=== PATIENT | male | born 1980 | race African-American/Black ===

== ENCOUNTER 2016-08-07 11:37 | Inpatient (IN) | payer SELFPAY ==
[2016-08-07] MEDS ORDERED: Ondansetron 4 MG/2 ML SDV IVPUSH ONE (12:36)
[2016-08-07] MEDS ORDERED: LORazepam 2 MG/ML MDV IVPUSH ONE ×2 (12:36→15:18)
--- NOTE | 2016-08-07 12:45 | EDM.PDOC ---
ED HPI NEURO - General Chief Complaint: Syncope Stated Complaint: VOMITING Time Seen by Provider: 08/07/16 12:36 Source of Information: Reports: Patient History Limitations: Reports: No limitations - History of Present Illness INITIAL COMMENTS - FREE TEXT/NARRATIVE: Patient is a 35-year-old who presents to the ED complaining of dizziness, room spinning, and nausea/vomiting. States yesterday he awoke with dizziness at approximately 5 AM. He was able to go to work but noted the dizziness continued to worsen thus he returned home and ate breakfast. Dizziness resolved on its own and had no further issues. This morning at approximately 2: 00 amhe awoke with severe dizziness worsened with eyes opening, moving his head left to right or up or down. He's had a few episodes of nausea and emesis. Symptoms improved with closing his eyes and holding his head straight. He currently does not have any nausea with admission to the ED. He notes with onset of vertigo symptoms he has some balance issues he feels like he will fall over. States he's never experienced similar episode in the past. Nor has he had recent upper respiratory infection. He has a mild headache to the frontal and back region consistent with previous headaches in the past. Denies any vision changes, slurred speech, difficulty swallowing, weakness, or any other focal neurological deficits. Denies any fever/chills, upper respiratory infections, ear pain, vision loss, chest pain, shortness of breath, no pain, or any additional complaints. Again he's never had symptoms as such. He has no prior past medical history and takes no prescription medications. He has no surgical history and has no primary care provider locally. He does not smoke consume alcohol or take drugs. Timing/Duration: Reports: Intermittent Location (Neuro Complaint): Reports: generalized Quality (Neuro Complaint): Reports: other (Room spinning) Improves with: Reports: Other (Closing eyes with no movement of the head.) Worsens with: Reports: Other (Moving head and open eyes) Context, General: Denies: Activity, Exercise, Lifting, Sick contact, Trauma Associated Symptoms: Reports: headaches (Mild), loss of appetite, nausea/ vomiting. 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 [No Known Home Meds] 08/07/16 [History] Social & Family History - Family History Family Medical History: Noncontributory - Tobacco Use Smoking Status *Q: Never Smoker - Caffeine Use Caffeine Use: Reports: Coffee - Recreational Drug Use Recreational Drug Use: No ED ROS GENERAL - Review of Systems Review Of Systems: See Below Constitutional: Denies: fever, chills, malaise, weakness, fatigue, decreased appetite HEENT: Reports: Vertigo. Denies: Ear discharge, Ear pain, Eye pain, Hearing loss, Rhinitis, Throat pain, Throat swelling, Vision change Respiratory: Denies: Shortness of Breath, Cough, Sputum Cardiovascular: Denies: Chest pain, Blood pressure problem, Dyspnea on exertion , Lightheadedness, Palpitations GI/Abdominal: Reports: Nausea, Vomiting. Denies: Abdominal pain, Constipation, Diarrhea : Denies: dysuria Musculoskeletal: Denies: neck pain, back pain Neurological: Reports: Headache (mild), Gait Disturbance (2nd to vertigo). Denies: Dizziness, Numbness, Paresthesia, Syncope, Tingling, Weakness ED EXAM, NEURO - Physical Exam Exam: See Below Exam Limited By: No limitations General Appearance: alert, WD/WN, no apparent distress Eye Exam: bilateral eye: EOMI, nystagmus (horizontal), PERRL Ears: normal external exam, normal canal, hearing grossly normal, normal TMs Nose: normal inspection Throat/Mouth: Normal inspection, Normal oropharynx, Normal voice, No airway compromise Head Exam: atraumatic, normocephalic Neck: normal inspection, supple, non-tender, full range of motion. No: lymphadenopathy (L), lymphadenopathy (R) Respiratory/Chest: no respiratory distress, lungs clear, normal breath sounds, no accessory muscle use, chest non-tender Cardiovascular: normal peripheral pulses, regular rate, rhythm, no murmur GI/Abdominal: normal bowel sounds, soft, non tender, no organomegaly, no distention Neurological: alert, normal mood/affect, normal dorsiflexion, CN II-XII intact, normal plantar flexion, normal reflexes, no motor/sensory deficits, oriented x 3 , other ([place] intact. No weakness noted to the upper/lower extremities. No facial droop. ) Course - Vital Signs Last Recorded V/S: Last Vital Signs Temp 96.5 F 08/07/16 11:50 Pulse 78 08/07/16 20:00 Resp 16 08/07/16 20:00 BP 140/78 08/07/16 20:00 Pulse Ox 97 08/07/16 20:00 Orthostatic Blood Pressure [ 142/89 Sitting] Orthostatic Blood Pressure [ 114/66 Supine] - Orders/Labs/Meds Orders: Active Orders 24 hr Category Date Time Status EKG Documentation Completion [RC] STAT Care 08/07/16 12:45 Active Medication Orders Acetaminophen (Tylenol) 650 mg PO Q4H PRN PRN Reason: Pain (Mild 1-3)/fever Acetaminophen/Hydrocodone Bitart ([place] 325-5 Mg) 1 tab PO Q4H PRN PRN Reason: Pain (moderate 4-6) Albuterol/Ipratropium (Duoneb 3.0-0.5 Mg/3 Ml) 3 ml NEB Q4H PRN PRN Reason: Shortness Of Breath/wheezing Bisacodyl (Dulcolax) 5 mg PO DAILY PRN PRN Reason: Constipation Enoxaparin Sodium (Lovenox) 30 mg SUBCUT DAILY PHIL Hydromorphone HCl (Dilaudid) 0.25 mg IVPUSH Q2H PRN PRN Reason: Pain (severe 7-10) Promethazine HCl 12.5 mg/ (Sodium Chloride) 50.5 mls @ 100 mls/hr IV Q6H PRN PRN Reason: Nausea/Vomiting Lorazepam (Ativan) 1 mg IV Q6H PRN PRN Reason: Anxiety Meclizine HCl (Antivert) 25 mg PO Q6H PRN PRN Reason: Dizziness Ondansetron HCl (Zofran) 4 mg IV Q6H PRN PRN Reason: Nausea/Vomiting Polyethylene Glycol (Miralax) 17 gm PO DAILY PRN PRN Reason: Constipation Senna/Docusate Sodium (Senna Plus) 1 tab PO BID PRN PRN Reason: Constipation Temazepam (Restoril) 30 mg PO BEDTIME PRN PRN Reason: Sleep Labs: Laboratory Tests 08/07/16 08/07/16 08/07/16 Range/Units 13:01 18:24 18:24 WBC 8.74 (4.23-9.07) K/mm3 RBC 5.29 (4.63-6.08) M/mm3 Hgb 16.1 (13.7-17.5) gm/L Hct 45.5 (40.1-51.0) % MCV 86.0 (79.0-92.2) fl MCH 30.4 (25.7-32.2) pg MCHC 35.4 (32.2-35.5) g/dl RDW Std Deviation 41.5 (35.1-43.9) fL Plt Count 189 (163-337) K/mm3 MPV 10.6 (9.4-12.3) fl Neut % (Auto) 79.0 H (34.0-67.9) % Lymph % (Auto) 15.2 L (21.8-53.1) % [place] % (Auto) 5.3 (5.3-12.2) % Eos % (Auto) 0.2 L (0.8-7.0) Baso % (Auto) 0.1 (0.1-1.2) % Neut # 6.90 H (1.78-5.38) K/mm3 Lymph # 1.33 (1.32-3.57) K/mm3 [place] # 0.46 (0.30-0.82) K/mm3 Eos # 0.02 L (0.04-0.54) K/mm3 Baso # 0.01 (0.01-0.08) K/mm3 Sodium 141 (136-145) mEq/L Potassium 4.0 (3.5-5.1) mEq/L Chloride 103 (98-107) mEq/L Carbon Dioxide 31 (21-32) mEq/L Anion Gap 11.0 (5-15) BUN 10 (7-18) mg/dL Creatinine 1.0 (0.7-1.3) mg/dL Est Cr Clr Drug Dosing 109.81 mL/min Estimated GFR (MDRD) > 60 (>60) mL/min BUN/Creatinine Ratio 10.0 L (14-18) Glucose 110 H (74-106) mg/dL POC Glucose 85 (70-105) mg/dL Calcium 8.8 (8.5-10.1) mg/dL Total Bilirubin 0.8 (0.2-1.0) mg/dL AST 15 (15-37) U/L ALT 39 (16-63) U/L Alkaline Phosphatase 57 (46-116) U/L Total Protein 7.5 (6.4-8.2) g/dl Albumin 4.2 (3.4-5.0) g/dl Globulin 3.3 gm/dL Albumin/Globulin Ratio 1.3 (1-2) Meds: Medications Generic Name Dose Route Start Last Admin Trade Name Freq PRN Reason Stop Dose Admin Acetaminophen 650 mg 08/07/16 20:05 Tylenol PO Q4H PRN Pain (Mild 1-3)/fever Acetaminophen/Hydrocodone Bitart 1 tab 08/07/16 20:05 [place] 325-5 Mg PO Q4H PRN Pain (moderate 4-6) Albuterol/Ipratropium 3 ml 08/07/16 20:05 Duoneb 3.0-0.5 Mg/3 Ml NEB Q4H PRN Shortness Of Breath/wheezing Bisacodyl 5 mg 08/07/16 20:05 Dulcolax PO DAILY PRN Constipation Enoxaparin Sodium 30 mg 08/08/16 09:00 Lovenox SUBCUT DAILY PHIL Hydromorphone HCl 0.25 mg 08/07/16 20:05 Dilaudid IVPUSH Q2H PRN Pain (severe 7-10) Promethazine HCl 12.5 mg/ 50.5 mls @ 100 mls/hr 08/07/16 20:05 Sodium Chloride IV Q6H PRN Nausea/Vomiting Lorazepam 1 mg 08/07/16 20:05 Ativan IV Q6H PRN Anxiety Meclizine HCl 25 mg 08/07/16 20:13 Antivert PO Q6H PRN Dizziness Ondansetron HCl 4 mg 08/07/16 20:05 Zofran IV Q6H PRN Nausea/Vomiting Polyethylene Glycol 17 gm 08/07/16 20:05 Miralax PO DAILY PRN Constipation Senna/Docusate Sodium 1 tab 08/07/16 20:05 Senna Plus PO BID PRN Constipation Temazepam 30 mg 08/07/16 20:05 Restoril PO BEDTIME PRN Sleep Discontinued Medications Generic Name Dose Route Start Last Admin Trade Name Freq PRN Reason Stop Dose Admin Diphenhydramine HCl 50 mg 08/07/16 20:14 Benadryl IVPUSH 08/07/16 20:15 ONETIME ONE Sodium Chloride 500 mls @ 500 mls/hr 08/07/16 18:09 08/07/16 18:19 Normal Saline IV 08/07/16 19:08 500 mls/hr .BOLUS ONE Administration Lorazepam 1 mg 08/07/16 12:36 08/07/16 13:02 Ativan IVPUSH 08/07/16 12:37 1 mg ONETIME ONE Administration Lorazepam 1 mg 08/07/16 15:18 08/07/16 15:27 Ativan IVPUSH 08/07/16 15:19 1 mg ONETIME ONE Administration Meclizine HCl 12.5 mg 08/07/16 13:42 08/07/16 14:10 Antivert PO 08/07/16 13:43 12.5 mg ONETIME ONE Administration Metoclopramide HCl 5 mg 08/07/16 15:18 08/07/16 15:30 Reglan IVPUSH 08/07/16 15:19 5 mg ONETIME ONE Administration Metoclopramide HCl 5 mg 08/07/16 18:09 08/07/16 18:15 Reglan IVPUSH 08/07/16 18:10 5 mg ONETIME ONE Administration Ondansetron HCl 4 mg 08/07/16 12:36 08/07/16 13:02 Zofran IVPUSH 08/07/16 12:37 4 mg ONETIME ONE Administration - Re-Assessments/Exams Free Text/Narrative Re-Assessment/Exam: EKG obtained. Sinus rhythm rate of 65, normal p axis, pr interval 1178, and QTc 441. no acute STchanges. Suspect current symptoms are related to BPV. Physical examination did not elicit any concerning neurological findings requiring further testing. Thus I have ordered ativan 1mg IVP and also zofran 4 mg IVP. 08/07/16 12:38 08/07/16 13:31 Bedside glucose was 85. 08/07/16 13:43 Reassessment, patients dizziness has improved. Currently mild increased with opening eyes and turning of the head. I have ordered meclizine 12.5 mg PO in preparation for discharge. Will allow patient to rest alittle longer prior to getting up to test if ataxic. 08/07/16 15:19 Reassessment, patient sat up with with worsening vertigo noted. Symptoms discontinue with lying flat and eyes closed. Ordered ativan 1mg IVP and reglan 5 mg IVP. PT at [facility] is full and unable to get patient in for treatment. 08/07/16 16:04 Reassessment, patient is resting comfortably. With sitting patients vertigo persist with opening of eyes. Horizontal nystagmus has worsened. Attempted to perform a modified eppley maneuver with no change. Will obtain CT of the Head. 08/07/16 18:09 Reassessment, patient sitting along the bedside complaining dizziness. Denies any nausea. Dr. Barfield examined the patient and agrees current symptoms associated with BPV most likely associated to the left inner ear. Patient is to unsafe to go home and will see about admitting to observation status. I have ordered NS 500ml bolus with running of 125mls thereafter.CBC and C14 will be obtained. I have ordered additional 5mg Reglan. 08/07/16 18:28 Dr. Jeter has accepted the patient. Patient meets observation status. Orders for admission placed. Departure - Departure Time of Disposition: 18:31 Disposition: Refer to Observation Condition: poor Clinical Impression: Acute onset of severe vertigo, Ataxic gait - My Orders Last 24 Hours: My Active Orders 08/07/16 12:45 EKG Documentation Completion [RC] STAT - Assessment/Plan Last 24 Hours: My Active Orders 08/07/16 12:45 EKG Documentation Completion [RC] STAT
[2016-08-07] MEDS ORDERED: Meclizine 12.5 MG Tab PO ONE (13:42)
[2016-08-07] MEDS ORDERED: Metoclopramide 10 MG/2 ML SDV IVPUSH ONE ×2 (15:18→18:09)
--- NOTE | 2016-08-07 16:48 | CT ---
Head CT Technique: Multiple axial sections through the brain were obtained. Intravenous contrast was not utilized. Comparison: No previous intracranial imaging. Findings: Ventricles along with basal cisterns and sulci over the convexities are within normal limits for the patient's age. No abnormal parenchymal densities are seen. No evidence of intracranial hemorrhage. No midline shift or mass effect is seen. Bone window settings were reviewed which shows no discrete calvarial abnormality. Mastoid and middle ear cavities are clear. Visualized paranasal sinuses shows minimal mucosal thickening within the right maxillary sinus. No acute calvarial abnormality is seen. Impression: 1. Minimal sinus finding which is felt to be incidental. 2. No acute intracranial abnormality is identified on noncontrast head CT study. Diagnostic code #2
[2016-08-07] MEDS ORDERED: Sodium Chloride 0.9% 500 ML IV ONE (18:09)
[2016-08-07] MEDS ORDERED: LORazepam 2 MG/ML MDV IV PRN (20:05)
[2016-08-07] MEDS ORDERED: Temazepam 15 MG Cap PO PRN (20:05)
[2016-08-07] MEDS ORDERED: Polyethylene Glycol 3350 Powder 17 GM Packet PO PRN (20:05)
[2016-08-07] MEDS ORDERED: HYDROmorphone 1 MG/ML Syringe IVPUSH PRN (20:05)
[2016-08-07] MEDS ORDERED: Ondansetron 4 MG/2 ML SDV IV PRN (20:05)
[2016-08-07] MEDS ORDERED: Promethazine 12.5 MG in Sodium Chloride 0.9% 50 ML IV PRN (20:05)
[2016-08-07] MEDS ORDERED: Albuterol/Ipratropium 3.0-0.5 MG/3 ML Neb Soln NEB PRN (20:05)
[2016-08-07] MEDS ORDERED: Acetaminophen 325 MG Tab PO PRN (20:05)
[2016-08-07] MEDS ORDERED: Bisacodyl 5 MG Tab PO PRN (20:05)
--- NOTE | 2016-08-07 20:05 | PCM.HP ---
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 His symptom resolved shortly but this morning he was awaken by similar episode but this time it appears more worse than previously. Patient reports no previous hx in the past. Her reports no ENT issues. He denies being diabetic. He further denies any recent Viral Illness or systemic infection. He does not smoke, drinks or use illicit drugs. His initial work up in ED were all benign to include imaging study. He was referred to mt for BPV management. - Related Data Allergies/Adverse Reactions: Allergies Allergy/AdvReac Type Severity Reaction Status Date / Time No Known Allergies Allergy Verified 08/07/16 11:54 Home Medications: Home Meds . [No Known Home Meds] 08/07/16 [History] Social & Family History - Family History Family Medical History: Noncontributory - Tobacco Use Smoking Status *Q: Never Smoker - Caffeine Use Caffeine Use: Reports: Coffee - Recreational Drug Use Recreational Drug Use: No H&P Review of Systems - Review of Systems: Review Of Systems: See Below General: Denies: chills, fatigue HEENT: Reports: no symptoms Pulmonary: Denies: Shortness of Breath Cardiovascular: Denies: chest pain Gastrointestinal: Reports: Nausea, Vomiting. Denies: Abdominal pain Genitourinary: Reports: no symptoms Musculoskeletal: Reports: no symptoms Skin: Denies: cyanosis, pallor Psychiatric: Denies: depression, anxiety, hallucinations Neurological: Reports: Dizziness, Headache, Difficulty Walking, Gait Disturbance. Denies: Syncope Hematologic/Lymphatic: Reports: no symptoms Immunologic: Reports: no symptoms Exam - Exam Exam: See Below - Vital Signs Vital Signs: Last Vital Signs Temp 35.8 C 08/07/16 11:50 Pulse 57 L 08/07/16 11:50 Resp 14 08/07/16 11:50 BP 129/76 08/07/16 11:50 Pulse Ox 99 08/07/16 11:50 Weight: 99.79 kg - Exam General: alert, oriented, cooperative HEENT: Conjunctiva clear, Mucosa moist & pink, Nares patent, Normal nasal septum , Posterior pharynx clear, Other (lateral nystagmus), PERRLA. No: EOMI Neck: supple, trachea midline, 2+ carotid pulse wo bruit Lungs: Clear to auscultation, Normal respiratory effort Cardiovascular: regular rate, regular rhythm Abdomen: normal bowel sounds, soft. No: organomegaly (Male) Exam: Deferred Rectal (Males) Exam: Deferred Back Exam: normal inspection, decreased range of motion Extremities: normal inspection, normal pulses, clubbing, cyanosis, calf tenderness, edema Peripheral Pulses: 3+: posterior tibial (L), posterior tibial (R), dorsalis pedis (L), dorsalis pedis (R) Skin: warm, dry, intact Neuro Extensive - Mental Status: oriented x3, normal cognition, memory intact Neuro Extensive - Motor, Sensory, Reflexes: CN II-XII intact (limited but fairly intact), abnormal gait Psychiatric: alert, normal affect, normal mood - Patient Data Result Diagrams: 08/07/16 18:24 08/07/16 18:24 *Q Meaningful Use (ADM) - VTE *Q VTE Criteria *Q: - Stroke *Q Stroke Criteria *Q: - AMI *Q AMI Criteria *Q: Problem List Initiated/Reviewed/Updated: Yes Assessment/Plan Comment:: Assessment/Plan: Acute: Benign Positional Vertigo - Head CT scan: negative - EKG on admission: Sinus Rhythm with a Rate of 65 bpm - Orthostatic negative - R/o Cardiac Dysrrhythmia-telemetry - No recent sinus, oral or ear infection - No acute hearing issues - No hx/o Migraine - Pos dizziness with abrupt head movement or change in position - Lateral Nystagmus - Adequate IV hydration and PRN medications - PT/OT for Vestibular treatment S/p Nausea and Vomiting - PRN anti-emesis Plan: Admit to Obs with Tele Routine AM labs Resume home meds PRN Meds for symptomatic control Code status: 1
[2016-08-07] MEDS ORDERED: diphenhydrAMINE 50 MG/ML SDV IVPUSH ONE (20:14)
[2016-08-08] MEDS ORDERED: HYDROmorphone 0.5 MG/0.5 ML Syringe IVPUSH PRN (08:08)
[2016-08-08] MEDS: Enoxaparin 40 MG/0.4 ML Syringe SUBCUT SCH (08:44)
[2016-08-08] MEDS: Acetaminophen/Butalbital/Caffeine 325-50-40 MG Tab PO PRN ×2 (11:19→21:25)
[2016-08-08] MEDS ORDERED: Temazepam 30 MG Cap PO PRN (11:27)
--- NOTE | 2016-08-08 13:50 | PCM.PN ---
- General Info Date of Service: 08/08/16 Admission Dx/Problem (Free Text): Admission Diagnosis/Problem Admission Diagnosis/Problem Vertigo Subjective Update: Follow Up Functional Status: Reports: pain controlled, urinating. Denies: tolerating diet , ambulating, new symptoms - Review of Systems General: Denies: Fever, Weakness, Fatigue, Malaise HEENT: Reports: no symptoms, headaches, other (photophobia) Pulmonary: Denies: shortness of breath Cardiovascular: Denies: Chest Pain Gastrointestinal: Reports: Nausea, Vomiting. Denies: Abdominal pain Genitourinary: Reports: no symptoms Musculoskeletal: Reports: no symptoms Skin: Reports: no symptoms Neurological: Reports: Dizziness, Difficulty Walking, Gait Disturbance Psychiatric: Reports: hallucinations. Denies: depression, anxiety Systems Review Comment:: Patient still symptomatic. No other acute issues. His labs were stable. - Patient Data Vitals - most recent: Last Vital Signs Temp 36.7 C 08/08/16 11:32 Pulse 73 08/08/16 11:32 Resp 14 08/08/16 11:32 BP 133/83 08/08/16 11:32 Pulse Ox 95 08/08/16 11:32 Weight - most recent: 99.79 kg Med Orders - Current: Current Medications Acetaminophen (Tylenol) 650 mg PO Q4H PRN PRN Reason: Pain (Mild 1-3)/fever Acetaminophen/Butalbital/Caffeine (Fioricet 325-50-40 Mg) 2 tab PO Q6H PRN PRN Reason: Headache Last Admin: 08/08/16 11:19 Dose: 2 tab Acetaminophen/Hydrocodone Bitart ([place] 325-5 Mg) 1 tab PO Q4H PRN PRN Reason: Pain (moderate 4-6) Albuterol/Ipratropium (Duoneb 3.0-0.5 Mg/3 Ml) 3 ml NEB Q4H PRN PRN Reason: Shortness Of Breath/wheezing Bisacodyl (Dulcolax) 5 mg PO DAILY PRN PRN Reason: Constipation Enoxaparin Sodium (Lovenox) 40 mg SUBCUT DAILY PHIL Last Admin: 08/08/16 08:44 Dose: 40 mg Hydromorphone HCl (Dilaudid) 0.25 mg IVPUSH Q2H PRN PRN Reason: Pain (severe 7-10) Promethazine HCl 12.5 mg/ (Sodium Chloride) 50.5 mls @ 100 mls/hr IV Q6H PRN PRN Reason: Nausea/Vomiting Lorazepam (Ativan) 1 mg IV Q6H PRN PRN Reason: Anxiety Meclizine HCl (Antivert) 25 mg PO Q6H PRN PRN Reason: Dizziness Last Admin: 08/08/16 11:19 Dose: 25 mg Ondansetron HCl (Zofran) 4 mg IV Q6H PRN PRN Reason: Nausea/Vomiting Polyethylene Glycol (Miralax) 17 gm PO DAILY PRN PRN Reason: Constipation Senna/Docusate Sodium (Senna Plus) 1 tab PO BID PRN PRN Reason: Constipation Temazepam (Restoril) 30 mg PO BEDTIME PRN PRN Reason: Sleep Discontinued Medications Diphenhydramine HCl (Benadryl) 50 mg IVPUSH ONETIME ONE Stop: 08/07/16 20:15 Last Admin: 08/08/16 05:31 Dose: Not Given Hydromorphone HCl (Dilaudid) 0.25 mg IVPUSH Q2H PRN PRN Reason: Pain (severe 7-10) Sodium Chloride (Normal Saline) 500 mls @ 500 mls/hr IV .BOLUS ONE Stop: 08/07/16 19:08 Last Admin: 08/07/16 18:19 Dose: 500 mls/hr Lorazepam (Ativan) 1 mg IVPUSH ONETIME ONE Stop: 08/07/16 12:37 Last Admin: 08/07/16 13:02 Dose: 1 mg Lorazepam (Ativan) 1 mg IVPUSH ONETIME ONE Stop: 08/07/16 15:19 Last Admin: 08/07/16 15:27 Dose: 1 mg Meclizine HCl (Antivert) 12.5 mg PO ONETIME ONE Stop: 08/07/16 13:43 Last Admin: 08/07/16 14:10 Dose: 12.5 mg Metoclopramide HCl (Reglan) 5 mg IVPUSH ONETIME ONE Stop: 08/07/16 15:19 Last Admin: 08/07/16 15:30 Dose: 5 mg Metoclopramide HCl (Reglan) 5 mg IVPUSH ONETIME ONE Stop: 08/07/16 18:10 Last Admin: 08/07/16 18:15 Dose: 5 mg Ondansetron HCl (Zofran) 4 mg IVPUSH ONETIME ONE Stop: 08/07/16 12:37 Last Admin: 08/07/16 13:02 Dose: 4 mg Temazepam (Restoril) 30 mg PO BEDTIME PRN PRN Reason: Sleep - Exam General: alert, cooperative HEENT: Pupils equal, Mucous membr. moist/pink, Other (would not even open eyes) . No: EOMI Neck: supple, trachea midline, no JVD Lungs: Clear to auscultation, Normal respiratory effort Cardiovascular: Regular Rate, Regular Rhythm Abdomen: bowel sounds present, soft, no tenderness, no distension (Male) Exam: Deferred Back Exam: normal inspection, decreased range of motion Extremities: no edema, normal pulses, no tenderness/swelling, no clubbing, no cyanosis, no calf tenderness Peripheral Pulses: 3+: posterior tibial (L), posterior tibial (R), dorsalis pedis (L), dorsalis pedis (R) Skin: warm, dry, intact Neurological: other (not able to perform due to severe vertigo). No: normal gait Psy/Mental Status: alert, normal affect, normal mood - Problem List Review Problem List Initiated/Reviewed/Updated: Yes - Plan Plan:: Assessment/Plan: Acute: Severe Benign Positional Vertigo - Head CT scan: negative - EKG on admission: Sinus Rhythm with a Rate of 65 bpm - Orthostatic negative - R/o Cardiac Dysrrhythmia-telemetry - No recent sinus, oral or ear infection - No acute hearing issues - No hx/o Migraine - Pos dizziness with abrupt head movement or change in position - Lateral Nystagmus - Adequate IV hydration and PRN medications - Improve symptom by 40% after Vestibular treatment - Still symptomatic associated with nausea/vomiting and HAWKINS - He is unable to stand up - Will obtain MRI to r/o vestibular neuritis - Continue PT/OT for Vestibular treatment Nausea and Vomiting - PRN anti-emesis Plan: Change to inpatient Patient not ready to d/c Continue supportive care Routine AM labs PRN Meds for symptomatic control Code status: 1 Additional orders as above
[2016-08-09] MEDS: Acetaminophen/Butalbital/Caffeine 325-50-40 MG Tab PO PRN (08:34)
[2016-08-09] MEDS: Enoxaparin 40 MG/0.4 ML Syringe SUBCUT SCH (08:34)
--- NOTE | 2016-08-09 08:40 | MR ---
MRI brain Technique: T1 sagittal; T2, T2 FLAIR, T1 and diffusion axial; T2 gradient echo thin axial images through the internal auditory canals are obtained. T2 FLAIR sagittal images were obtained as well as T1 FLAIR coronal images. Comparison: Previous head CT study of 08/07/16. Findings: Contents of the internal auditory canals are unremarkable. No cerebellopontine angle cistern mass is seen. Ventricles along with basal cisterns and sulci over the convexities are within normal limits for the patient's age. Mild mucosal thickening seen inferiorly within both maxillary sinuses. Normal signal void is seen within the major cerebral arteries within the skull base. Minimal areas of increased signal scattered within the subcortical white matter of both frontal lobes. No other abnormal parenchymal signal is seen. No acute diffusion abnormalities are identified. Impression: 1. Small areas of increased signal scattered within the frontal subcortical white matter. These are nonspecific regarding etiology with differential including demyelinating white matter processes as well as change from prior trauma. Since no diffusion abnormality seen these are most likely old. 2. Mild mucosal thickening inferiorly within both maxillary sinuses. 3. No additional abnormality identified on MRI study of the brain. Diagnostic code #3
--- NOTE | 2016-08-09 10:06 | PCM.PN ---
- General Info Date of Service: 08/09/16 Admission Dx/Problem (Free Text): Admission Diagnosis/Problem Admission Diagnosis/Problem Vertigo Subjective Update: Follow Up Functional Status: Reports: pain controlled, urinating. Denies: tolerating diet , new symptoms - Review of Systems General: Denies: Fever, Chills HEENT: Reports: headaches Pulmonary: Reports: no symptoms Cardiovascular: Denies: Palpitations Gastrointestinal: Denies: Abdominal pain, Decreased appetite, Nausea, Vomiting Genitourinary: Reports: no symptoms Musculoskeletal: Reports: no symptoms Skin: Denies: cyanosis, jaundice Neurological: Reports: Dizziness, Headache, Difficulty Walking, Gait Disturbance Psychiatric: Denies: depression, anxiety, hallucinations Systems Review Comment:: No overnight issues. He seems to be getting better. He is now able to open his eyes but still has this lingering headaches. He still symptomatic when he tries to stand up and walk-essentially not able to function. He has no new complaints. - Patient Data Vitals - most recent: Last Vital Signs Temp 37.0 C 08/09/16 08:34 Pulse 63 08/09/16 08:34 Resp 14 08/09/16 08:34 BP 141/82 H 08/09/16 08:34 Pulse Ox 97 08/09/16 08:34 Weight - most recent: 99.79 kg I&O - last 24 hours: Intake & Output 08/08/16 08/09/16 08/09/16 22:59 06:59 14:59 Intake Total 1610 Balance 1610 Med Orders - Current: Current Medications Acetaminophen (Tylenol) 650 mg PO Q4H PRN PRN Reason: Pain (Mild 1-3)/fever Acetaminophen/Butalbital/Caffeine (Fioricet 325-50-40 Mg) 2 tab PO Q6H PRN PRN Reason: Headache Last Admin: 08/09/16 08:34 Dose: 2 tab Acetaminophen/Hydrocodone Bitart ([place] 325-5 Mg) 1 tab PO Q4H PRN PRN Reason: Pain (moderate 4-6) Albuterol/Ipratropium (Duoneb 3.0-0.5 Mg/3 Ml) 3 ml NEB Q4H PRN PRN Reason: Shortness Of Breath/wheezing Bisacodyl (Dulcolax) 5 mg PO DAILY PRN PRN Reason: Constipation Enoxaparin Sodium (Lovenox) 40 mg SUBCUT DAILY PHIL Last Admin: 08/09/16 08:34 Dose: 40 mg Hydromorphone HCl (Dilaudid) 0.25 mg IVPUSH Q2H PRN PRN Reason: Pain (severe 7-10) Promethazine HCl 12.5 mg/ (Sodium Chloride) 50.5 mls @ 100 mls/hr IV Q6H PRN PRN Reason: Nausea/Vomiting Lorazepam (Ativan) 1 mg IV Q6H PRN PRN Reason: Anxiety Meclizine HCl (Antivert) 25 mg PO Q6H PRN PRN Reason: Dizziness Last Admin: 08/09/16 08:34 Dose: 25 mg Ondansetron HCl (Zofran) 4 mg IV Q6H PRN PRN Reason: Nausea/Vomiting Polyethylene Glycol (Miralax) 17 gm PO DAILY PRN PRN Reason: Constipation Senna/Docusate Sodium (Senna Plus) 1 tab PO BID PRN PRN Reason: Constipation Temazepam (Restoril) 30 mg PO BEDTIME PRN PRN Reason: Sleep Discontinued Medications Diphenhydramine HCl (Benadryl) 50 mg IVPUSH ONETIME ONE Stop: 08/07/16 20:15 Last Admin: 08/08/16 05:31 Dose: Not Given Hydromorphone HCl (Dilaudid) 0.25 mg IVPUSH Q2H PRN PRN Reason: Pain (severe 7-10) Sodium Chloride (Normal Saline) 500 mls @ 500 mls/hr IV .BOLUS ONE Stop: 08/07/16 19:08 Last Admin: 08/07/16 18:19 Dose: 500 mls/hr Lorazepam (Ativan) 1 mg IVPUSH ONETIME ONE Stop: 08/07/16 12:37 Last Admin: 08/07/16 13:02 Dose: 1 mg Lorazepam (Ativan) 1 mg IVPUSH ONETIME ONE Stop: 08/07/16 15:19 Last Admin: 08/07/16 15:27 Dose: 1 mg Meclizine HCl (Antivert) 12.5 mg PO ONETIME ONE Stop: 08/07/16 13:43 Last Admin: 08/07/16 14:10 Dose: 12.5 mg Metoclopramide HCl (Reglan) 5 mg IVPUSH ONETIME ONE Stop: 08/07/16 15:19 Last Admin: 08/07/16 15:30 Dose: 5 mg Metoclopramide HCl (Reglan) 5 mg IVPUSH ONETIME ONE Stop: 08/07/16 18:10 Last Admin: 08/07/16 18:15 Dose: 5 mg Ondansetron HCl (Zofran) 4 mg IVPUSH ONETIME ONE Stop: 08/07/16 12:37 Last Admin: 08/07/16 13:02 Dose: 4 mg Temazepam (Restoril) 30 mg PO BEDTIME PRN PRN Reason: Sleep - Exam General: alert, oriented, cooperative, no acute distress HEENT: Pupils equal, Pupils reactive, Mucous membr. moist/pink, Other (mild lateral nystagmus). No: EOMI Neck: supple, trachea midline, no JVD, no thyromegaly Lungs: Clear to auscultation, Normal respiratory effort Cardiovascular: Regular Rate, Regular Rhythm Abdomen: bowel sounds present, soft, no tenderness, no distension (Male) Exam: Deferred Back Exam: normal inspection, decreased range of motion Extremities: no edema, normal pulses, no tenderness/swelling, no clubbing, no cyanosis, no calf tenderness Peripheral Pulses: 3+: posterior tibial (L), posterior tibial (R), dorsalis pedis (L), dorsalis pedis (R) Skin: warm, dry, intact Neurological: no new focal deficit Psy/Mental Status: alert, normal affect, normal mood - Problem List Review Problem List Initiated/Reviewed/Updated: Yes - My Orders Last 24 Hours: My Active Orders 08/09/16 01:13 Patient Status [ADT] Routine - Plan Plan:: Assessment/Plan: Acute: Severe Benign Positional Vertigo, appears to be improving - Head CT scan: negative - EKG on admission: Sinus Rhythm with a Rate of 65 bpm - Orthostatic negative - R/o Cardiac Dysrrhythmia-telemetry - No recent sinus, oral or ear infection - No acute hearing issues - No hx/o Migraine - Pos dizziness with abrupt head movement or change in position - Lateral Nystagmus - Adequate IV hydration and PRN medications - Improve symptom by 40% after Vestibular treatment - Still symptomatic associated with nausea/vomiting and [place] - He is unable to stand up - MRI showed no acute intra-cranial abnormality - Continue PT/OT for Vestibular treatment Vertigo Associated Headache - No effective medications - He is not responding to Fioricet - PRN [place] and Ativan Nausea and Vomiting - PRN anti-emesis Plan: He seems to be getting better but not ready for discharge Continue supportive care Routine AM labs D/c Fioricet PRN Meds for symptomatic control Code status: 1 Additional orders as above
[2016-08-09] MEDS ORDERED: Acetaminophen/HYDROcodone 325-10 MG Tab PO PRN (10:31)
[2016-08-09] MEDS ORDERED: LORazepam 1 MG Tab PO PRN (10:32)
[2016-08-09] MEDS ORDERED: LORazepam 2 MG/ML MDV IV PRN (10:35)
[2016-08-09] MEDS: Acetaminophen/HYDROcodone 325-5 MG Tab PO PRN (13:11)
[2016-08-10] MEDS: Enoxaparin 40 MG/0.4 ML Syringe SUBCUT SCH (09:53)
[2016-08-10] MEDS ORDERED: Flu Vaccine 2016-17(36Mos+)/PF 60 MCG/0.5 ML Syringe IM ONE (10:00)
[2016-08-10] MEDS ORDERED: Pneumococcal Polyvalent-23 Vaccine 0.5 ML SDV IM ONE (10:00)
[2016-08-10] MEDS ORDERED: Diphtheria,Pertussis(Acell),Tetanus Vaccine 0.5 ML SDV inactive IM ONE (10:00)
[2016-08-10] MEDS: Acetaminophen/HYDROcodone 325-5 MG Tab PO PRN (10:15)
--- NOTE | 2016-08-10 12:06 | PCM.DCSUM1 ---
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 He was admitted for BPV. - Discharge Data Discharge Date: 08/10/16 Discharge Disposition: Home, Self-Care 01 Condition: Good - Discharge Diagnosis/Problem(s) (1) Headache SNOMED Code(s): 72743421 ICD Code: R51 - HEADACHE Status: Acute Qualifiers: Headache type: tension-type Headache chronicity pattern: acute headache Intractability: not intractable Qualified Code(s): G44.209 - Tension-type headache, unspecified, not intractable (2) Acute onset of severe vertigo SNOMED Code(s): 592399564 ICD Code: R42 - DIZZINESS AND GIDDINESS Status: Acute - Patient Summary/Data Operative Procedure(s) Performed: None Complications: None Hospital Course: Patient was primarily admitted for evaluation of sudden onset of Vertigo. He carries no past medical hx in past. All his diagnostic work up to include MRI showed no acute findings. However patient improved basically with supportive care, PRN medications and vestibular exercise. Patient has done fairly well since admission. His hospital course is uncomplicated. He is now stable fro discharge. He is now able to get up with less symptoms. He will be provide medications for control his associated symptoms and to continue vestibular treatment as an outpatient. Patient was advised to see his PCP if not ENT if no resolution of this vertigo. Patient expressed understanding and in agreement with the plans as discussed above. All questions were answered. - Patient Instructions Diet: Usual Diet as Tolerated Activity: As Tolerated Driving: Do Not Drive Showering/Bathing: May Shower Notify Provider of: Nausea and/or Vomiting Other/Special Instructions: - Take all medications as directed. - Follow up outpatient PT for Vestibular Treatment. - Follow up with you doctor as needed - Discharge Plan Prescriptions/Med Rec: Meclizine [Antivert] 25 mg PO Q6H PRN #20 tab.chew PRN Reason: Other SUMAtriptan [Imitrex] 50 mg PO Q2H PRN #15 tablet PRN Reason: Headache Home Medications: Home Meds Meclizine [Antivert] 25 mg PO Q6H PRN #20 tab.chew 08/10/16 [Rx] SUMAtriptan [Imitrex] 50 mg PO Q2H PRN #15 tablet 08/10/16 [Rx] Patient Handouts: Vertigo, [id number] Referrals: Bhavin Topete PA-C [Physician [employer]] - (Please see MARTHA Walker on Saturday at 9:30 AM on 08/15/16. Please register 15 minutes earlier than appointment time by coming in the east doors of the clinic/hospital building.) - Discharge Summary/Plan Comment DC Time >30 min.: No Discharge Summary/Plan Comment: Discharge to Home - General Info Date of Service: 08/10/16 Admission Dx/Problem (Free Text: Admission Diagnosis/Problem Admission Diagnosis/Problem Vertigo Subjective Update: Follow Up Functional Status: Reports: pain controlled, tolerating diet, ambulating, urinating. Denies: new symptoms - Patient Data Vitals - Most Recent: Last Vital Signs Temp 37.1 C 08/10/16 08:53 Pulse 81 08/10/16 08:54 Resp 24 H 08/10/16 08:54 BP 135/71 08/10/16 08:53 Pulse Ox 94 L 08/10/16 08:54 Weight - Most Recent: 99.79 kg I&O - Last 24 hours: Intake & Output 08/09/16 08/10/16 08/10/16 22:59 06:59 14:59 Intake Total 1810 200 0 Balance 1810 200 0 Med Orders - Current: Current Medications Acetaminophen (Tylenol) 650 mg PO Q4H PRN PRN Reason: Pain (Mild 1-3)/fever Acetaminophen/Butalbital/Caffeine (Fioricet 325-50-40 Mg) 2 tab PO Q6H PRN PRN Reason: Headache Last Admin: 08/09/16 08:34 Dose: 2 tab Acetaminophen/Hydrocodone Bitart ([place] 325-5 Mg) 1 tab PO Q4H PRN PRN Reason: Pain (moderate 4-6) Last Admin: 08/10/16 10:15 Dose: 1 tab Albuterol/Ipratropium (Duoneb 3.0-0.5 Mg/3 Ml) 3 ml NEB Q4H PRN PRN Reason: Shortness Of Breath/wheezing Bisacodyl (Dulcolax) 5 mg PO DAILY PRN PRN Reason: Constipation Enoxaparin Sodium (Lovenox) 40 mg SUBCUT DAILY PHIL Last Admin: 08/10/16 09:53 Dose: 40 mg Hydromorphone HCl (Dilaudid) 0.25 mg IVPUSH Q2H PRN PRN Reason: Pain (severe 7-10) Promethazine HCl 12.5 mg/ (Sodium Chloride) 50.5 mls @ 100 mls/hr IV Q6H PRN PRN Reason: Nausea/Vomiting Lorazepam (Ativan) 1 mg PO Q4H PRN PRN Reason: Anxiety Lorazepam (Ativan) 1 mg IV Q6H PRN PRN Reason: Anxiety Meclizine HCl (Antivert) 25 mg PO Q6H PRN PRN Reason: Dizziness Last Admin: 08/09/16 08:34 Dose: 25 mg Ondansetron HCl (Zofran) 4 mg IV Q6H PRN PRN Reason: Nausea/Vomiting Polyethylene Glycol (Miralax) 17 gm PO DAILY PRN PRN Reason: Constipation Senna/Docusate Sodium (Senna Plus) 1 tab PO BID PRN PRN Reason: Constipation Temazepam (Restoril) 30 mg PO BEDTIME PRN PRN Reason: Sleep Discontinued Medications Acetaminophen/Hydrocodone Bitart ([place] 325-10 Mg) 1 tab PO Q4H PRN PRN Reason: Headache/Pain Diphenhydramine HCl (Benadryl) 50 mg IVPUSH ONETIME ONE Stop: 08/07/16 20:15 Last Admin: 08/08/16 05:31 Dose: Not Given Diphtheria/Tetanus/Acell Pertussis (Boostrix) 0.5 ml IM .ONCE ONE Stop: 08/10/16 10:01 Last Admin: 08/10/16 11:14 Dose: Not Given Hydromorphone HCl (Dilaudid) 0.25 mg IVPUSH Q2H PRN PRN Reason: Pain (severe 7-10) Sodium Chloride (Normal Saline) 500 mls @ 500 mls/hr IV .BOLUS ONE Stop: 08/07/16 19:08 Last Admin: 08/07/16 18:19 Dose: 500 mls/hr Influenza Virus Vaccine (Fluzone/Fluarix Vaccine) 60 mcg IM .ONCE ONE Stop: 08/10/16 10:01 Last Admin: 08/10/16 11:15 Dose: Not Given Lorazepam (Ativan) 1 mg IVPUSH ONETIME ONE Stop: 08/07/16 12:37 Last Admin: 08/07/16 13:02 Dose: 1 mg Lorazepam (Ativan) 1 mg IVPUSH ONETIME ONE Stop: 08/07/16 15:19 Last Admin: 08/07/16 15:27 Dose: 1 mg Lorazepam (Ativan) 1 mg IV Q6H PRN PRN Reason: Anxiety Meclizine HCl (Antivert) 12.5 mg PO ONETIME ONE Stop: 08/07/16 13:43 Last Admin: 08/07/16 14:10 Dose: 12.5 mg Metoclopramide HCl (Reglan) 5 mg IVPUSH ONETIME ONE Stop: 08/07/16 15:19 Last Admin: 08/07/16 15:30 Dose: 5 mg Metoclopramide HCl (Reglan) 5 mg IVPUSH ONETIME ONE Stop: 08/07/16 18:10 Last Admin: 08/07/16 18:15 Dose: 5 mg Ondansetron HCl (Zofran) 4 mg IVPUSH ONETIME ONE Stop: 08/07/16 12:37 Last Admin: 08/07/16 13:02 Dose: 4 mg Pneumococcal Polyvalent Vaccine (Pneumovax 23) 0.5 ml IM .ONCE ONE Stop: 08/10/16 10:01 Last Admin: 08/10/16 11:15 Dose: Not Given Temazepam (Restoril) 30 mg PO BEDTIME PRN PRN Reason: Sleep *Q Meaningful Use (DIS) - VTE *Q VTE Criteria *Q: - Stroke *Q Stroke Criteria *Q: - AMI *Q AMI Criteria *Q:
[2016-08-10] MEDS ORDERED: SUMAtriptan 6 MG/0.5 ML SDV SUBCUT ONE (12:26)
[2016-08-10 13:02] VITALS: BP 136/80
== END 2016-08-10 15:40 | disposition home or self-care (01) | DRG 149 ==
LOC: JD.ED 11:37 → UNDOADMOB 18:28 → JD.MS 18:28 → OBSVTOIN 08-08 12:15 → JD.MS 08-08 18:20
PROVIDERS: ADMIT Internal Medicine; ATTEND Internal Medicine
DX: H81.10 Benign paroxysmal vertigo, unspecified ear (principal); R26.0 Ataxic gait; R11.2 Nausea with vomiting, unspecified; R51 Headache
CPT/HCPCS: 36415; 70450; 70450-26; 70551; 70551-26; 80048; 80053; 82962; 83735; 85025; 93005; 95992-GP; 96361; 96374; 96375; 96376; 97110-GP; 97112-GP; 97116-GP; 97124-GP; 97140-GP; 97161-GP; 97162-GP; 97165-GO; 97530-GP; 99218; 99231; 99238; 99285; 99285-25; A9270; A9270-GY; J1650; J2060; J2405; J2765; J3030; J7040